=== PATIENT | female | born 1950 | race Caucasian/White ===

== ENCOUNTER 2018-03-06 12:56 | Outpatient (CLI) | payer OTHER | END 2018-03-10 13:01 | disposition home or self-care (01) | LOC: RAD 12:56 | DX: K59.01 Slow transit constipation (principal); K80.20 Calculus of gallbladder without cholecystitis without obstruction ==

== ENCOUNTER 2018-10-19 12:27 | Inpatient (IN) | payer OTHER ==
[~2018-10-19] VITALS: Ht 213.4 cm; Wt 5.0 kg
[2018-10-19] MEDS ORDERED: ATORVASTATIN CA20 MG (13:05)
[2018-10-19] MEDS ORDERED: B-125000 MCG (13:07)
[2018-11-01] MEDS ORDERED: FLUCONAZOLE200 MG PO (12:32)
[2018-11-01] MEDS ORDERED: DIAZEPAM5 MG PO (12:32)
[2018-11-01] MEDS ORDERED: INTESTINEX680 M1 PO (12:32)
== END 2018-11-01 14:42 | disposition home or self-care (01) | DRG 594 ==
LOC: ER 12:27 → MEDI 23:29 → SEC-K 23:29 → MEDJ 10-20 00:19 → MEDI 10-20 00:19
PROVIDERS: ADMIT Internal Medicine
PROC: B44FZZZ Ultrasonography of Right Lower Extremity Arteries (ICD-10-PCS; principal; 2018-10-19)
DX: L97.518 Non-pressure chronic ulcer of other part of right foot with other specified severity (principal); L03.031 Cellulitis of right toe; B37.2 Candidiasis of skin and nail; R33.8 Other retention of urine; K59.09 Other constipation; N81.89 Other female genital prolapse; B35.3 Tinea pedis

== ENCOUNTER 2019-04-03 08:13 | Outpatient (CLI) | payer OTHER ==
[~2019-04-03 08:13] MED LIST: ATORVASTATIN CA20 MG; B-125000 MCG; DIAZEPAM5 MG PO; FLUCONAZOLE200 MG PO; GABAPENTIN100 MG PO; INTESTINEX680 M1 PO
== END 2019-04-03 08:16 | disposition home or self-care (01) ==
LOC: MRI 08:13
DX: M48.02 Spinal stenosis, cervical region (principal)
CPT/HCPCS: 72141

== ENCOUNTER 2020-10-16 09:37 | Outpatient (CLI) | payer OTHER | END 2020-10-16 09:40 | disposition home or self-care (01) | LOC: RAD 09:37 | PROVIDERS: ATTEND Neuromusculoskeletal Medicine & OMM | DX: M25.571 Pain in right ankle and joints of right foot (principal) ==

== ENCOUNTER 2023-01-04 09:25 | Outpatient (CLI) | payer OTHER | END 2023-01-04 09:27 | disposition home or self-care (01) | LOC: NUCLEAR 09:25 | PROVIDERS: ATTEND Specialist | DX: I73.9 Peripheral vascular disease, unspecified (principal) ==

== ENCOUNTER 2023-01-05 09:56 | Outpatient (CLI) | payer OTHER | END 2023-01-05 10:03 | disposition home or self-care (01) | LOC: NUCLEAR 09:56 | PROVIDERS: ATTEND Specialist | DX: I87.2 Venous insufficiency (chronic) (peripheral) (principal) ==